=== PATIENT | male | born 1940 | race African-American/Black ===

== ENCOUNTER 2016-07-05 09:01 | Outpatient (CLI) | payer MEDICARE, MEDICAID ==
--- NOTE | 2016-07-20 14:45 | Vascular Lab Report ---
CAROTID DUPLEX STUDY: RIGHT PSVEDV CCA PROX: [id number] CCA DIST: 8615 ICA PROX:[id number] ICA MID: 9418 ICA DIST: 6815 ECA: 170 VERT: 97 22 LEFT PSVEDV CCA PROX:[id number] CCA DIST: 7720 ICA PROX: 9133 ICA MID: 9927 ICA DIST: 8525 ECA: 151 VERT: 13 0 REASON FOR EXAM: Carotid artery stenosis. COMMENTS ON THE RIGHT: Doppler frequency analysis is consistent with 50 to 79 percent diameter reduction of the internal carotid artery, closer to 50%. Calcified and noncalcified plaque at the bulb noted The common carotid artery is patent. The external carotid artery is patent. The vertebral artery has antegrade flow. COMMENTS ON THE LEFT: Doppler frequency analysis is consistent with 16 to 49 percent diameter reduction of the internal carotid artery. Calcified and noncalcified plaque at the carotid bulb noted. The common carotid artery is patent. The external carotid artery is patent. The vertebral artery has antegrade flow. The vertebral artery diastolic velocity is not present compatible with atherosclerotic disease or diminutive size of the left vertebral artery. IMPRESSION: 50-79% diameter reduction of the right internal carotid artery. Less than 50% diameter reduction in the left internal carotid artery. Limited diastolic flow in the left vertebral artery compatible with diminutive size of the vessel or atherosclerotic disease of the vessel. Consider repeat carotid artery duplex in 6 months.
== END 2016-07-05 09:02 | disposition home or self-care (01) ==
LOC: VAS 09:01
PROVIDERS: ATTEND Internal Medicine
DX: I65.23 Occlusion and stenosis of bilateral carotid arteries (principal); R09.89 Other specified symptoms and signs involving the circulatory and respiratory systems
CPT/HCPCS: 93880

== ENCOUNTER 2017-04-05 09:21 | Outpatient (CLI) | payer MEDICARE, MEDICAID ==
--- NOTE | 2017-04-11 13:37 | Vascular Lab Report ---
CAROTID DUPLEX STUDY: RIGHT PSVEDV CCA PROX:[id number] CCA DIST:59291 ICA PROX:1319 ICA MID:8623 ICA DIST:8419 ECA: 243 0 VERT: 81 18 LEFT PSVEDV CCA PROX:9512 CCA DIST:8919 ICA PROX:66817 ICA MID:9728 ICA DIST:87977 ECA: 2790 VERT: 14 0 REASON FOR EXAM: Carotid artery bruit. COMMENTS ON THE RIGHT: Doppler frequency analysis is consistent with 50 to 79 percent diameter reduction of the internal carotid artery. A moderate amount of plaque is seen. The common carotid artery is patent. The external carotid artery is patent. The vertebral artery has antegrade flow. COMMENTS ON THE LEFT: Doppler frequency analysis is consistent with 16 to 49 percent diameter reduction of the internal carotid artery. Minimal amount of plaque is seen. The common carotid artery is patent. The external carotid artery is patent. The vertebral artery has antegrade flow. IMPRESSION: 50-79% diameter reduction in the right internal carotid artery. Less than 50% diameter reduction the left internal carotid artery. Consider repeat carotid artery duplex in 12 months.
== END 2017-04-05 09:22 | disposition home or self-care (01) ==
LOC: VAS 09:21
PROVIDERS: ATTEND Internal Medicine
DX: I65.23 Occlusion and stenosis of bilateral carotid arteries (principal)
CPT/HCPCS: 93880

== ENCOUNTER 2019-02-03 10:02 | Outpatient (CLI) | payer MEDICARE ==
--- NOTE | 2019-02-03 14:24 | Vascular Lab Report ---
Bilateral Carotid Doppler Ultrasound INDICATION : RIGHT CAROTID BRUIT TECHNIQUE: Grayscale and color Doppler imaging performed through the neck. COMPARISON: None FINDINGS: Right: There is mild atherosclerotic disease in the CCA with moderate disease in the bulb. Peak sys tolic velocity in the CCA is 120 cm/s with end-diastolic velocity of 15 cm/s. Peak systolic velocity in the proximal ICA is 138 cm/s with end-diastolic velocity of 14 cm/s. ICA to CCA ratio is less than 2. There is antegrade flow in the ECA and the vertebral artery. Left: There is mild atherosclerotic disease in the distal CCA, bulb, and ICA. Peak systolic velocity in the CCA is 104 cm/s with end-diastolic velocity of 20 cm/s. Peak systolic velocity in the proximal ICA is 119 cm/s with end-diastolic velocity of 33 cm/s. ICA to CCA ratio is less than 2. There is an tegrade flow in the ECA and the vertebral artery. IMPRESSION: 1. 50-69% stenosis in the right proximal ICA by NASCET criteria. 2. No hemodynamically significant stenosis on the left by NASCET criteria. Signer Name: Tonny Mai MD Signed: 02/03/2019 2:19 PM Workstation Name: [id number]
== END 2019-02-03 10:03 | disposition home or self-care (01) ==
LOC: VAS 10:02
PROVIDERS: ATTEND Internal Medicine
DX: I65.23 Occlusion and stenosis of bilateral carotid arteries (principal)
CPT/HCPCS: 93880